=== PATIENT | female | born 1935 | race Caucasian/White ===

== ENCOUNTER 2018-05-24 10:08 | Inpatient (IN) | payer OTHER ==
[~2018-05-24] VITALS: Ht 162.6 cm; Wt 61.5 kg
[2018-05-24 11:18] LABS: BASOPHIL (%) 0.3 % (0-1); BASOPHIL COUNT 0.1 K/uL (0-0.1); EOSINOPHIL (%) 0.2 % (0-5); HEMATOCRIT 39.8 % (36.0-46.0); IMMATURE GRANULOCYTE (%) 0.5 % (0.0-0.7); LYMPHOCYTE (%) 7.1 % (15-42); LYMPHOCYTE COUNT 1.2 K/uL (1.0-2.8); MCH 27.4 PG (29.0-34.0); MCHC 32.7 G/DL (30.0-36.0); MCV 83.8 FL (83-99); MONOCYTE (%) 7.6 % (3-12); MONOCYTE COUNT 1.3 K/uL (0-0.8); NEUTROPHIL (%) 84.3 % (45-76); NEUTROPHIL COUNT 14.2 K/uL (1.8-6.4); PLATELET COUNT 157 K/uL (156-360); RBC DIS.WIDTH-CV 13.9 % (11.8-14.6); RBC DIS.WIDTH-SD 42.7 % (39-53); RED BLOOD COUNT 4.75 M/uL (3.80-5.20); WHITE BLOOD COUNT 16.8 K/uL (4.1-10.2)
[2018-05-24 11:27] LABS: CHLORIDE 101 mEq/L (99-109); POTASSIUM 4.2 mEq/L (3.7-5.4); SODIUM 138 mEq/L (136-147)
[2018-05-24 11:29] LABS: GLUCOSE 102 mg/dL (70-99)
[2018-05-24 11:33] LABS: CREATININE 0.9 mg/dL (0.6-1.3); GFR ESTIMATE (CALCULATED) > 59 mL/min/
[2018-05-24 11:34] LABS: UREA NITROGEN (BUN) 28 mg/dL (9-23)
[2018-05-24 11:38] LABS: TROP-I INTERPRETATION NEGATIVE; TROPONIN-I 0.03 ng/mL (0.0-0.30)
[2018-05-24 13:43] LABS: APPEARANCE CLEAR ((CLEAR)); BILIRUBIN NEGATIVE; BLOOD NEGATIVE; COLOR YELLOW ((YELLOW)); GLUCOSE (STRIP) NEGATIVE; KETONES NEGATIVE; LEUKOCYTES NEGATIVE; NITRITE NEGATIVE; PROTEIN (STRIP) NEGATIVE; SPECIFIC GRAVITY 1.018 (1.000-1.030); UCUL ADDED? NO; UROBILINOGEN 0.2 MG/DL (0.2-1.0)
[2018-05-24 14:05] LABS: TROP-I INTERPRETATION NEGATIVE; TROPONIN-I 0.03 ng/mL (0.0-0.30)
[2018-05-24] MEDS ORDERED: HYDROCHLOROTHIA25 MG PO (15:21)
[2018-05-24] MEDS ORDERED: LEVO-T125 MCG PO (15:21)
[2018-05-24] MEDS ORDERED: LOTENSIN40 MG PO (15:21)
[2018-05-24] MEDS ORDERED: TENORMIN100 MG PO (15:22)
[2018-05-24] MEDS ORDERED: ZOCOR40 MG PO (15:22)
[2018-05-24] MEDS ORDERED: ASPIRIN81 M2 PO (15:23)
[2018-05-24 16:22] VITALS: BP 177/77
[2018-05-24 18:52] LABS: TROP-I INTERPRETATION NEGATIVE; TROPONIN-I 0.03 ng/mL (0.0-0.30)
[2018-05-24 19:44] VITALS: BP 187/71
[2018-05-25] VITALS (13 sets, daily range): BP systolic 113–220; BP diastolic 52–88
[2018-05-25 05:40] LABS: HEMATOCRIT 35.4 % (36.0-46.0); HEMOGLOBIN 11.5 G/DL (11.9-15.5); MCH 27.2 PG (29.0-34.0); MCHC 32.5 G/DL (30.0-36.0); MCV 83.7 FL (83-99); PLATELET COUNT 139 K/uL (156-360); RBC DIS.WIDTH-CV 14.1 % (11.8-14.6); RED BLOOD COUNT 4.23 M/uL (3.80-5.20); WHITE BLOOD COUNT 10.9 K/uL (4.1-10.2)
[2018-05-25 06:08] LABS: CHLORIDE 102 MEQ/L (99-109); CREATININE 0.7 MG/DL (0.6-1.3); GFR ESTIMATE (CALCULATED) > 59 mL/min/; GLUCOSE 110 mg/dL (70-99); SODIUM 137 MEQ/L (136-147); UREA NITROGEN (BUN) 23 mg/dL (9-23)
[2018-05-25 06:14] LABS: POTASSIUM 3.1 MEQ/L (3.7-5.4)
[2018-05-25] MEDS ORDERED: NORVASC5 MG PO (09:52)
[2018-05-25] MEDS ORDERED: APRESOLINE10 MG PO (09:52)
[2018-05-25 14:35] LABS: TROP-I INTERPRETATION NEGATIVE; TROPONIN-I 0.03 ng/mL (0.0-0.30)
[2018-05-25 20:20] LABS: TROP-I INTERPRETATION POSITIVE; TROPONIN-I 0.69 ng/mL (0.0-0.30)
[2018-05-25 22:14] LABS: CHLORIDE 103 mEq/L (99-109); POTASSIUM 4.2 mEq/L (3.7-5.4); SODIUM 137 mEq/L (136-147)
[2018-05-25 22:15] LABS: MAGNESIUM 1.7 mg/dL (1.3-2.7)
[2018-05-25 22:16] LABS: GLUCOSE 136 mg/dL (70-99)
[2018-05-25 22:20] LABS: CREATININE 0.8 mg/dL (0.6-1.3); GFR ESTIMATE (CALCULATED) > 59 mL/min/
[2018-05-25 22:21] LABS: UREA NITROGEN (BUN) 21 mg/dL (9-23)
[2018-05-25 22:24] LABS: INTER. NORMALIZED RATIO 1.1
[2018-05-25 22:26] LABS: PTT 26.9 SEC (25-37)
[2018-05-26] VITALS: BP 138/57
[2018-05-26 02:02] LABS: HEMATOCRIT 35.9 % (36.0-46.0); HEMOGLOBIN 12.1 G/DL (11.9-15.5); MCH 27.9 PG (29.0-34.0); MCHC 33.7 G/DL (30.0-36.0); MCV 82.9 FL (83-99); RBC DIS.WIDTH-CV 14.2 % (11.8-14.6); RBC DIS.WIDTH-SD 42.9 % (39-53); RED BLOOD COUNT 4.33 M/uL (3.80-5.20); WHITE BLOOD COUNT 15.2 K/uL (4.1-10.2)
[2018-05-26 02:37] LABS: TROP-I INTERPRETATION POSITIVE
[2018-05-26 02:38] LABS: TROPONIN-I 5.07 ng/mL (0.0-0.30)
[2018-05-26 02:47] LABS: PLAT.SUFFICIENCY ADEQUATE; PLATELET COUNT 161 K/uL (156-360)
[2018-05-26 04:00] VITALS: BP 150/67
[2018-05-26 08:26] VITALS: BP 133/70
[2018-05-26 09:24] LABS: CHLORIDE 101 MEQ/L (99-109); CREATININE 0.6 MG/DL (0.6-1.3); GFR ESTIMATE (CALCULATED) > 59 mL/min/; GLUCOSE 127 mg/dL (70-99); POTASSIUM 3.8 MEQ/L (3.7-5.4); SODIUM 136 MEQ/L (136-147); UREA NITROGEN (BUN) 24 mg/dL (9-23)
[2018-05-26 11:25] VITALS: BP 138/67
[2018-05-26 12:18] LABS: TROP-I INTERPRETATION POSITIVE; TROPONIN-I 10.56 ng/mL (0.0-0.30)
[2018-05-26 19:57] VITALS: BP 149/65
[2018-05-26 21:25] VITALS: BP 149/65
[2018-05-27] VITALS (7 sets, daily range): BP systolic 125–173; BP diastolic 59–73
[2018-05-27 05:58] LABS: HEMATOCRIT 32.8 % (36.0-46.0); HEMOGLOBIN 10.7 G/DL (11.9-15.5); MCH 27.1 PG (29.0-34.0); MCHC 32.6 G/DL (30.0-36.0); PLATELET COUNT 139 K/uL (156-360); RBC DIS.WIDTH-CV 14.1 % (11.8-14.6); RBC DIS.WIDTH-SD 42.3 % (39-53); RED BLOOD COUNT 3.95 M/uL (3.80-5.20); WHITE BLOOD COUNT 12.1 K/uL (4.1-10.2)
[2018-05-27 06:57] LABS: CHLORIDE 100 MEQ/L (99-109); CREATININE 0.6 MG/DL (0.6-1.3); GFR ESTIMATE (CALCULATED) > 59 mL/min/; GLUCOSE 106 mg/dL (70-99); SODIUM 138 MEQ/L (136-147); UREA NITROGEN (BUN) 22 mg/dL (9-23)
[2018-05-28 04:30] VITALS: BP 137/63
[2018-05-28 05:48] LABS: HEMATOCRIT 32.1 % (36.0-46.0); HEMOGLOBIN 10.4 G/DL (11.9-15.5); MCHC 32.4 G/DL (30.0-36.0); MCV 83.4 FL (83-99); PLATELET COUNT 149 K/uL (156-360); RBC DIS.WIDTH-CV 14.1 % (11.8-14.6); RBC DIS.WIDTH-SD 42.8 % (39-53); RED BLOOD COUNT 3.85 M/uL (3.80-5.20); WHITE BLOOD COUNT 7.2 K/uL (4.1-10.2)
[2018-05-28 06:17] LABS: CHLORIDE 101 MEQ/L (99-109); CREATININE 0.7 MG/DL (0.6-1.3); GFR ESTIMATE (CALCULATED) > 59 mL/min/; GLUCOSE 90 mg/dL (70-99); POTASSIUM 3.6 MEQ/L (3.7-5.4); SODIUM 137 MEQ/L (136-147); UREA NITROGEN (BUN) 29 mg/dL (9-23)
[2018-05-28 07:00] VITALS: BP 138/68
[2018-05-28 10:52] VITALS: BP 124/61
[2018-05-28] MEDS ORDERED: NORVASC5 MG PO (11:24)
[2018-05-28] MEDS ORDERED: CLOPIDOGREL75 MG PO (11:24)
[2018-05-28] MEDS ORDERED: NITROSTAT0.4 MG SL (11:24)
[2018-05-28] MEDS ORDERED: APRESOLINE10 MG PO (11:24)
[2018-05-28] MEDS ORDERED: LOPRESSOR25 MG PO (11:24)
== END 2018-05-28 15:10 | disposition home or self-care (01) | DRG 251 ==
LOC: EME 10:08 → EDOF 15:07 → ENRESERV 15:10 → 4SOUTH 15:57 → 4EAST 05-25 14:14 → ENRESERV 05-26 14:02 → 4EAST 05-26 19:37 → ENPENDDIS 05-28 → 4EAST 05-28 15:10
PROVIDERS: Emergency Medicine; Internal Medicine; Physician Assistant; Physician Assistant Medical
DX: I21.4 Non-ST elevation (NSTEMI) myocardial infarction (principal); J90 Pleural effusion, not elsewhere classified; J98.11 Atelectasis; I25.10 Atherosclerotic heart disease of native coronary artery without angina pectoris; F17.210 Nicotine dependence, cigarettes, uncomplicated; E03.9 Hypothyroidism, unspecified; E78.5 Hyperlipidemia, unspecified; E86.0 Dehydration; E87.6 Hypokalemia; J44.9 Chronic obstructive pulmonary disease, unspecified; I10 Essential (primary) hypertension; I35.0 Nonrheumatic aortic (valve) stenosis; J84.10 Pulmonary fibrosis, unspecified; T44.7X5A Adverse effect of beta-adrenoreceptor antagonists, initial encounter; Z79.82 Long term (current) use of aspirin; Y92.89 Other specified places as the place of occurrence of the external cause; Z86.73 Personal history of transient ischemic attack (TIA), and cerebral infarction without residual deficits; Z90.49 Acquired absence of other specified parts of digestive tract; Z82.3 Family history of stroke
CPT/HCPCS: 70450; 70551; 71045; 71250; 80048; 80048 91; 81003; 83735; 84132 91; 84484; 85025; 85027; 85347; 85610; 85730; 87493; 93005; 93306; 94640; 94799; 99281; 99285; C1725; C1750; C1769; C1887; G0378; J0360; J0461; J1644; J1650; J2250; J2405; J3010; J7030; J7040